=== PATIENT | male | born 2000 | race Caucasian/White ===

== ENCOUNTER → 2025-02-19 19:35 | Outpatient (REF) | payer BC, SELFPAY | LOC: MRI 3T 19:35 | PROVIDERS: ATTENDING PHYSICIAN Specialist; FAMILY PHYSICIAN Family Medicine | DX: R56.9 Unspecified convulsions (principal); R94.01 Abnormal electroencephalogram [EEG]; G93.41 Metabolic encephalopathy | CPT/HCPCS: 70553; A9575 ==